=== PATIENT | male | born 1985 | race Asian ===

== ENCOUNTER 2019-01-25 05:37 | Emergency (ER) | payer SELFPAY ==
[~2019-01-25] VITALS: Ht 180.3 cm; Wt 90.7 kg
--- NOTE | 2019-01-25 05:40 | NUR ---
ED Nurse Note: BROUGHT IN BY [facility]26 from home c/c abd pain since last night with n/v/d. AO4 VSS.
[2019-01-25] MEDS ORDERED: Metoclopramide 10mg/2ml Inj IVP ONE (05:45)
[2019-01-25] MEDS ORDERED: DiphenhydrAMINE 50mg/ml Inj IVP ONE (05:45)
[2019-01-25] MEDS ORDERED: Omnipaque-300 100ml vial INJ PRN (05:45)
[2019-01-25] MEDS ORDERED: Morphine Sulfate 4mg/ml Inj (IV USE ONLY) IVP ONE (05:45)
--- NOTE | 2019-01-25 05:45 | NUR ---
ED Nurse Note: IV ACCESS ESTABLISHED. BLOOD AND URINE COLLECTED; SENT DOWN TO LAB.
[2019-01-25 05:58] VITALS: BP 140/86
--- NOTE | 2019-01-25 06:00 | NUR ---
ED Nurse Note: MEDICATED PATIENT; TOLERATED WELL. RESTING CALMLY IN BED WITH NO ACUTE DISTRESS. RESPIRATIONS EVEN AND UNLABORED.
--- NOTE | 2019-01-25 06:01 | Emergency Room Report ---
History of Present Illness General Chief Complaint: Abdominal Pain Source: Patient (Kenny Max DO) Present Illness HPI Patient presents with complaints of epigastric pain nausea vomiting patient reports that yesterday around 130 2:00 in the afternoon He had fish After a few bites he felt somewhat nauseous however he did finish eating the rest of the food Patient felt increasingly ill around 8:00 at night while trying to watch the Thursday football game And later on in the nighttime became nauseated and the pain came back again in the epigastric area Patient presented to the ER actively nauseated was brought in by paramedics and soon after vomited several times Denies any chest pain or shortness of breath denies any obvious fevers patient is otherwise fairly healthy and has no other previous surgeries (Kenny Max DO) Allergies: Coded Allergies: No Known Allergies (Unverified , 01/25/19) Patient History Past Medical History: see triage record Reviewed Nursing Documentation: PMH: Agreed; PSxH: Agreed (Kenny Max DO) Nursing Documentation-PMH Past Medical History: No Stated History (Kenny Max DO) Review of Systems All Other Systems: negative except mentioned in HPI (Kenny Max DO) Physical Exam Vital Signs Date Time Temp Pulse Resp B/P (MAP) Pulse Ox O2 Delivery O2 Flow Rate FiO2 01/25/19 05:39 98.8 113 18 127/78 (94) 98 Room Air Sp02 EP Interpretation: reviewed, normal General Appearance: mild distress - Actively nauseated and vomited Head: normocephalic, atraumatic Eyes: bilateral eye PERRL, bilateral eye EOMI ENT: normal pharynx, no angioedema Neck: supple Respiratory: chest non-tender, lungs clear, no respiratory distress, no retraction Cardiovascular #1: regular rate, rhythm Gastrointestinal: non tender - On palpation however subjectively pointing to the mid abdomen and epigastric area, soft Genitourinary: no CVA tenderness Musculoskeletal: normal inspection Neurologic: alert, oriented x3, responsive Psychiatric: normal inspection Skin: no rash Lymphatic: no adenopathy (Kenny Max DO) Medical Decision Making Diagnostic Impression: Primary Impression: Gastroenteritis ER Course With the history exam and presentation, multiple differentials considered, including but not limited to appendicitis, gastritis, cholecystitis, diverticulitis Patient has extensive blood work initiated along with CT imaging (Kenny Max DO) ER Course Patient is a 33-year-old male presents after increased abdominal pain. CT imaging shows some evidence of colitis. Patient had improvement of symptoms after medications. He was given IV fluids. Patient started on IV antibiotics for urinalysis that showed some evidence of possible urinary infection. Patient will be given prescription for oral antibiotics. He was given return precautions and advised to recheck in the next 2 to 3 days with his primary care physician. He is to return if worse. Labs Test 01/25/19 05:45 White Blood Count 11.6 K/UL (4.8-10.8) Red Blood Count 6.05 M/UL (4.70-6.10) Hemoglobin 16.7 G/DL (14.2-18.0) Hematocrit 48.8 % (42.0-52.0) Mean Corpuscular Volume 81 FL (80-99) Mean Corpuscular Hemoglobin 27.6 PG (27.0-31.0) Mean Corpuscular Hemoglobin Concent 34.3 G/DL (32.0-36.0) Red Cell Distribution Width 12.6 % (11.6-14.8) Platelet Count 365 K/UL (150-450) Mean Platelet Volume 5.3 FL (6.5-10.1) Neutrophils (%) (Auto) 73.8 % (45.0-75.0) Lymphocytes (%) (Auto) 18.8 % (20.0-45.0) Monocytes (%) (Auto) 6.7 % (1.0-10.0) Eosinophils (%) (Auto) 0.1 % (0.0-3.0) Basophils (%) (Auto) 0.5 % (0.0-2.0) Urine Color Yellow Urine Appearance Slightly cloudy Urine pH 5 (4.5-8.0) Urine Specific [place] 1.020 (1.005-1.035) Urine Protein 1+ (NEGATIVE) Urine Glucose (UA) Negative (NEGATIVE) Urine Ketones 1+ (NEGATIVE) Urine Blood 1+ (NEGATIVE) Urine Nitrite Negative (NEGATIVE) Urine Bilirubin Negative (NEGATIVE) Urine Urobilinogen 1 MG/DL (0.0-1.0) Urine Leukocyte Esterase 2+ (NEGATIVE) Urine RBC 2-4 /HPF (0 - 0) Urine WBC 40-60 /HPF (0 - 0) Urine Squamous Epithelial Cells None /LPF (NONE/OCC) Urine Bacteria Moderate /HPF (NONE) Sodium Level 139 MMOL/L (136-145) Potassium Level 3.9 MMOL/L (3.5-5.1) Chloride Level 103 MMOL/L (98-107) Carbon Dioxide Level 29 MMOL/L (21-32) Anion Gap 7 mmol/L (5-15) Blood Urea Nitrogen 16 mg/dL (7-18) Creatinine 1.2 MG/DL (0.55-1.30) Estimat Glomerular Filtration Rate > 60 mL/min (>60) Glucose Level 115 MG/DL (74-106) Calcium Level 8.6 MG/DL (8.5-10.1) Total Bilirubin 1.1 MG/DL (0.2-1.0) Direct Bilirubin 0.3 MG/DL (0.0-0.3) Aspartate Amino Transf (AST/SGOT) 20 U/L (15-37) Alanine Aminotransferase (ALT/SGPT) 24 U/L (12-78) Alkaline Phosphatase 72 U/L (46-116) Total Protein 8.2 G/DL (6.4-8.2) Albumin 3.8 G/DL (3.4-5.0) Globulin 4.4 g/dL Albumin/Globulin Ratio 0.9 (1.0-2.7) Lipase 110 U/L (73-393) Urine Opiates Screen Negative (NEGATIVE) Urine Barbiturates Screen Negative (NEGATIVE) Phencyclidine (PCP) Screen Negative (NEGATIVE) Urine Amphetamines Screen Positive (NEGATIVE) Urine Benzodiazepines Screen Negative (NEGATIVE) Urine Cocaine Screen Negative (NEGATIVE) Urine Marijuana (THC) Screen Negative (NEGATIVE) Serum Alcohol < 3 mg/dL (Kyle Neal MD) Last Vital Signs Date Time Temp Pulse Resp B/P (MAP) Pulse Ox O2 Delivery O2 Flow Rate FiO2 01/25/19 05:39 98.8 113 18 127/78 (94) 98 Room Air (eKnny Max DO) Status: improved (Kyle Neal MD) Disposition: HOME, SELF-CARE Condition: Stable Kenny Max DO Jan 25, 2019 06:01 Kyle Neal MD Jan 25, 2019 07:40
[2019-01-25 06:03] LABS: BASOPHILS % (AUTO) 0.5 % (0.0-2.0); EOSINOPHILS % (AUTO) 0.1 % (0.0-3.0); HEMATOCRIT 48.8 % (42.0-52.0); HEMOGLOBIN 16.7 G/DL (14.2-18.0); LYMPHOCYTES % (AUTO) 18.8 % (20.0-45.0); MEAN CORPUSCULAR VOLUME 81 FL (80-99); MONOCYTES % (AUTO) 6.7 % (1.0-10.0); NEUTROPHILS % (AUTO) 73.8 % (45.0-75.0); PLATELET COUNT 365 K/UL (150-450); RED BLOOD COUNT 6.05 M/UL (4.70-6.10); RED CELL DISTRIBUTION WIDTH 12.6 % (11.6-14.8); WHITE BLOOD COUNT 11.6 K/UL (4.8-10.8)
[2019-01-25 06:12] LABS: ANION GAP 7 mmol/L (5-15); BLOOD UREA NITROGEN 16 mg/dL (7-18); CALCIUM 8.6 MG/DL (8.5-10.1); CARBON DIOXIDE 29 MMOL/L (21-32); CHLORIDE 103 MMOL/L (98-107); CREATININE 1.2 MG/DL (0.55-1.30); POTASSIUM 3.9 MMOL/L (3.5-5.1); SODIUM 139 MMOL/L (136-145)
[2019-01-25 06:22] LABS: ALANINE AMINOTRANSFERASE 24 U/L (12-78); ALBUMIN 3.8 G/DL (3.4-5.0); ALBUMIN/GLOBULIN RATIO 0.9 (1.0-2.7); ALKALINE PHOSPHATASE 72 U/L (46-116); ASPARTATE AMINO TRANSFERASE 20 U/L (15-37); BILIRUBIN, URINE NEGATIVE (NEGATIVE); BILIRUBIN,TOTAL 1.1 MG/DL (0.2-1.0); GLUCOSE, URINE (UA) NEGATIVE (NEGATIVE); KETONES,URINE 1+ (NEGATIVE); LEUKOCYTE ESTERASE ,URINE 2+ (NEGATIVE); NITRITE,URINE NEGATIVE (NEGATIVE); PH,URINE 5 (4.5-8.0); PROTEIN,URINE 1+ (NEGATIVE); UROBILINOGEN,URINE 1 MG/DL (0.0-1.0)
[2019-01-25 06:24] LABS: BILIRUBIN,DIRECT 0.3 MG/DL (0.0-0.3)
[2019-01-25 06:37] LABS: APPEARANCE,URINE SLIGHTLY CLOUDY; COLOR,URINE YELLOW
[2019-01-25 06:55] VITALS: BP 124/79
--- NOTE | 2019-01-25 06:55 | NUR ---
ED Nurse Note: PT DOWN TO CT WITH INSURANCE SERVICE REPRESENTATIVE VIA WHEELCHAIR
--- NOTE | 2019-01-25 07:16 | NUR ---
ED Nurse Note: PATIENT BACK FROM CT WITH NO ACUTE DISTRESS. RESTING COMFORTABLY IN BED.
[2019-01-25 07:18] VITALS: BP 133/76
--- NOTE | 2019-01-25 07:18 | NUR ---
HAND-OFF: Report given to MIHAI ADAMS. PATIENT IN STABLE CONDITION.
--- NOTE | 2019-01-25 07:19 | NUR ---
ED Nurse Note: Received patient in bed, patient is alert awake x4, resting in bed, patient on a ticket sorter, stable vital signs noted.
[2019-01-25] MEDS ORDERED: cefTRIAXone 1 GM in NS 55 ML IVPB ONE (07:30)
--- NOTE | 2019-01-25 07:35 | Diagnostic Imaging Report ---
Indication: Abdominal pain Technique: Continuous helical transaxial imaging of the abdomen and pelvis was obtained from the lung bases to the pubic symphysis during intravenous contrast administration. Coronal 2-D reformats were also obtained. Study obtained in a Siemens sensation [address] Automatic Exposure Control was utilized. Total Dose length Product (DLP): 971.[address] Dose Index Volume (CTDIvol): 15.9 mGy Comparison: None Findings: The lung bases are clear. Distended loops of bowel both large and small bowel demonstrated with the fluid consistency within several of the dilated small bowel loops and liquefied stool within the colon. Findings indicative of a gastroenteritis diarrhea. Correlate clinically. There is no free fluid identified. There is no evidence of abscess. Urinary bladder is unremarkable. Kidneys appear normal. There is no hydronephrosis. Tiny low-density focus in the medial segment of the left lobe of the liver demonstrated, too small to characterize. Focal fat noted in the area of the falciform ligament. Spleen is normal in attenuation and size. Pancreas is unremarkable. Gallbladder is unremarkable. There is no adrenal mass. The stomach is completely nondistended and not evaluated well on this examination. IMPRESSION: Gastroenteritis with the distended fluid-filled small bowel and liquefied stool in the colon. Correlate clinically for diarrhea. Normal appendix. Tiny low-density lesion in the liver nonspecific [facility] has communicated the preliminary results to the Emergency Department. Their findings are largely concordant with this report. The CT scanner at [facility] is accredited by the [employer] and the scans are performed using dose optimization techniques as appropriate to a performed exam including Automatic Exposure control.
--- NOTE | 2019-01-25 07:39 | NUR ---
ED Nurse Note: MD at bedside.
[2019-01-25] MEDS ORDERED: IMODIUM2 MG ORAL (07:45)
[2019-01-25] MEDS ORDERED: CEPHALEXIN500 MG ORAL (07:45)
[2019-01-25] MEDS ORDERED: ONDANSETRON ODT4 MG BC (07:45)
[2019-01-25 09:18] VITALS: BP 127/82
[2019-01-25 09:20] VITALS: BP 127/82
--- NOTE | 2019-01-25 09:20 | NUR ---
ER DISCHARGE NOTE: Patient is cleared to be discharged per ER MD, pt is aox4, on room air, with stable vital signs. pt was given dc and prescription instructions, pt was able to verbalize understanding, pt id band and iv site removed without complications. pt is able to ambulate with steady gait. pt took all belongings. pt stable upon discharge.
== END 2019-01-25 09:20 | disposition home or self-care (01) ==
LOC: EDBD 05:37 → EMR 06:04
DX: K52.9 Noninfective gastroenteritis and colitis, unspecified (principal)
CPT/HCPCS: 36415; 74177; 80053; 80307; 81003; 82248; 83690; 85025; 87086; 96361; 96365; 96375; 99284; G0480; J0696; J1200; J2270; J2765; Q9967; J7030